=== PATIENT | female | born 1975 | race Caucasian/White ===

== ENCOUNTER 2016-12-15 15:36 | Emergency (ER) | payer OTHER ==
--- NOTE | ~2016-12-15 | CR172 ---
[facility] A Service of [facility] RADIOLOGY TEXT RESULTS PATIENT: KISHAN STEWART LOCATION: SED : 79 UNIT #: [id number] AGE: [address]: Marisol Farfan APRN SEX: F ORDER DR: [id number] [address] [address] [id number] MR#: [id number] Acc #: [id number] NAME: KISHAN STEWART. : 1975 SEX: F STUDY DATE/TIME: 12/15/2016 15:27 UNIT: SED ROOM: STUDY DESCRIPTION: CR Knee 3 Views Lt Attending Physician: Marisol Farfan A.P.R.N. Ordering Physician: Marisol Zelaya A.P.R.N. Primary Care Physician: Tyson Pride M.D. MEDICAL IMAGING REPORT This report is preliminary unless electronic signature is present. EXAM Left knee 3 views INDICATIONS Left knee pain after twisting it 1 month ago. COMPARISON No comparisons. FINDINGS There is a small knee joint effusion. No fracture or dislocation. Knee joint effusion may have a small fat-fluid level. IMPRESSION There is no fracture. There is a small knee joint effusion which appears to have a small fat-fluid level. This may indicate a ligamentous injury. Correlation with MRI may be helpful. Correlate clinically. Dictated by... Vinod Pride M.D. THIS IS AN ELECTRONICALLY VERIFIED REPORT Vinod Pride M.D. at 12/15/2016 4:57 PM ARS/to TD: 12/15/2016 16:55 JOB #: [id number] MEDICAL IMAGING REPORT Page 1 of 1
[~2016-12-15 15:36] MED LIST: ALBUTEROL17 GM INH; AZITHROMYCIN250 MG PO; DICLOFENAC PO; HCTZ PO; IBUPROFEN800 MG PO; MEDI-MECLIZINE25 M1 PO; MULTIVITAMINS1 EAC3 PO; NO MEDICATIONS; PHENERGAN PO; PHENERGAN/CODEINE PO; PREDNISONE PO; PRENATAL VITAMI1 TA4 PO; PROVENTIL5 MG/ML INH; ROBITUSSIN A-C S5 ML PO; VOLTAREN50 MG PO; WELLBUTRIN PO; ZITHROMAX PO
== END 2016-12-15 16:25 | disposition home or self-care (01) ==
LOC: SED 15:36
DX: M25.562 Pain in left knee (principal); M79.89 Other specified soft tissue disorders; F17.210 Nicotine dependence, cigarettes, uncomplicated; Z79.899 Other long term (current) drug therapy
CPT/HCPCS: 29530; 73562; 99283